=== PATIENT | female | born 1935 | race Caucasian/White ===

== ENCOUNTER 2020-08-29 10:05 | Inpatient (IN) | payer MEDICARE, BC ==
[2020-08-29] MEDS ORDERED: Sodium Chloride 0.9% 10 ML Syringe FLUSH PRN (10:29)
--- NOTE | 2020-08-29 10:32 | EDM.PDOC ---
ED HPI GENERAL MEDICAL PROBLEM - General Chief Complaint: Respiratory Problem Stated Complaint: LOW O2 Time Seen by Provider: 08/29/20 10:16 Source of Information: Reports: Patient, Family (daughterr) History Limitations: Reports: No Limitations - History of Present Illness INITIAL COMMENTS - FREE TEXT/NARRATIVE: 84-year-old female presents to the ED in accompaniment of her daughter. History suggest gradually increasing shortness of breath over the last week. O2 sat testing at home was 88 to 89%. Of note O2 sats on presentation to the ED today after walking into the hospital were only 85%. She can improve it slightly while using a spirometer. She is not on home oxygen therapy. She quit smoking cigarettes 23 years ago. She denies any orthopnea. Dyspnea on minimal exertion. No associated cough or sputum production. No recent change in medication. Patient has a history of chronic atrial fibrillation . She denies any chest pains in the last week or so. She does have a history of congestive heart failure. Currently on Lasix 40 mg in the morning and 20 mg in the p.m. She has not had COVID-19 vaccination. She has no signs or symptoms of active COVID-19 illness at this time. Patient carries a history of peripheral vascular disease having had left carotid endarterectomy in the past. Poor circulation to lower extremities Onset: Gradual Onset Date: 08/22/20 (Symptoms started a week or so ago.) Duration: Day(s):, Constant, Getting Worse (Dyspnea on minimal exertion.) Location: Reports: Chest (Shortness of breath on minimal exertion. No associated cough.) Quality: Reports: Other Severity: Moderate (Dyspnea on minimal exertion.) Improves with: Reports: Rest Worsens with: Reports: Other Context: Reports: Other. Denies: Activity (Worse with exertion.), Exercise, Lifting, Sick Contact, Trauma Associated Symptoms: Reports: Shortness of Breath, Weakness. Denies: Confusion, Chest Pain (Gradually worsening dyspnea over the last week particularly noted on minimal exertion.), Cough, cough w sputum, Diaphoresis, Fever/Chills, Headaches, Loss of Appetite, Malaise, Nausea/Vomiting, Rash, Seizure, Syncope Treatments LIFE MANAGER: Reports: Other (see below) (Due to dyspnea.) - Related Data Allergies Allergy/AdvReac Type Severity Reaction Status Date / Time [id number] Reductase Allergy Rash Verified 08/29/20 10:14 Inhibitor Sulfa (Sulfonamide Allergy Itching Verified 08/29/20 10:14 Antibiotics) oxycodone AdvReac Shaking Verified 08/29/20 10:14 Home Meds: Home Meds Furosemide [Lasix] 40 mg PO QAM 02/02/14 [History] Omeprazole 20 mg PO ACBREAKFAST 02/02/14 [History] allopurinoL [Zyloprim] 150 mg PO DAILY 02/02/14 [History] glipiZIDE [Glucotrol] 20 mg PO BID 02/02/14 [History] Flaxseed 4 tbsp PO DAILY 11/02/14 [History] Furosemide 20 mg PO QPM 11/02/14 [History] Potassium Chloride [Klor-Con M20] 10 meq PO DAILY 11/02/14 [History] Carvedilol [Coreg] 25 mg PO BID #60 tablet 11/08/14 [Rx] traMADol [Ultram] 50 mg PO Q6H PRN #20 tab 11/30/14 [Rx] Losartan [Cozaar] 50 mg PO DAILY 08/29/20 [History] Warfarin Sodium [Jantoven] 2.5 mg PO ASDIRECTED 08/29/20 [History] dilTIAZem HCL [Diltiazem ER] 180 mg PO DAILY 08/29/20 [History] Past Medical History HEENT History: Reports: Cataract, Impaired Vision Cardiovascular History: Reports: Afib (Rate controlled with metoprolol and Cardizem. 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 She has had left carotid endarterectomy.) Psychiatric History: Reports: None Endocrine/Metabolic History: Reports: Diabetes, Type II, Hypothyroidism, Obesity/BMI 30+ - Past Surgical History HEENT Surgical History: Reports: Cataract Surgery (Bilateral cataract extraction and intraocular lens placements.) Cardiovascular Surgical History: Reports: Carotid Endarterectomy (Left side done in December 2018) Social & Family History - Tobacco Use Tobacco Use Status *Q: Former Tobacco User (Quit 23 years ago. Carries a 84-ilge-eybg history however.) Used Tobacco, but Quit: Yes Month/Year Tobacco Last Used: 03/1999 - Caffeine Use Caffeine Use: Reports: Coffee - Recreational Drug Use Recreational Drug Use: No - Living Situation & Occupation Living situation: Reports: , Alone Occupation: Retired ED ROS GENERAL - Review of Systems Review Of Systems: See Below Constitutional: Reports: Fatigue. Denies: Fever, Chills, Malaise, Weakness, Diaphoresis, Decreased Appetite, Weight Loss HEENT: Reports: Glasses Respiratory: Reports: Shortness of Breath, Wheezing. Denies: Pleuritic Chest Pain, Cough, Sputum, Hemoptysis Cardiovascular: Reports: Blood Pressure Problem (Chronic hypertension), Claudication (She is being followed by cardiovascular surgeon yearly due to per 6 relation to her lower extremities), Dyspnea on Exertion, Edema. Denies: Chest Pain, Lightheadedness (Base edema lower extremities she believes ankles.), Orthopnea, Palpitations Endocrine: Reports: Fatigue GI/Abdominal: Reports: Constipation, Other : Reports: Frequency (Occasional GERD.), Incontinence (Occasional urge and stress components.), Urgency Musculoskeletal: Reports: Neck Pain ( lower back neck), Back Pain, Joint Pain (Knees hips) Skin: Reports: Bruising (Bruises easily due to being on Coumadin.) Neurological: Reports: No Symptoms Psychiatric: Reports: Anxiety Hematologic/Lymphatic: Reports: No Symptoms Immunologic: Reports: No Symptoms ED EXAM, GENERAL - Physical Exam Exam: See Below Exam Limited By: No Limitations General Appearance: Alert, WD/WN, No Apparent Distress, Other (Temperature is 36.5 degrees. Heart rate was 101 and irregularly irregular compatible with atrial fibrillation) Eye Exam: Bilateral Eye: Normal Inspection (Previous cataract extraction and intraocular lens implants.), PERRL Throat/Mouth: Normal Inspection, Normal Lips, Other. No: Normal Teeth Head: Atraumatic, Normocephalic Neck: Normal Inspection, Supple, Tender Lateral, Other (Previous left carotid endarterectomy has been carried out. No bruits are noted on the right side.). No: Non-Tender, Full Range of Motion, Carotid Bruit, Lymphadenopathy (L), Lymphadenopathy (R) Respiratory/Chest: No Respiratory Distress, No Accessory Muscle Use, Rales. No: Lungs Clear (Few fine rales right lung base.), Normal Breath Sounds, Respiratory Distress, Rhonchi, Wheezing Cardiovascular: No Gallop, No JVD, No Murmur, Tachycardia (101 on the monitor.), Irregularly Irregular (Heart rate of 101 and compared with atrial fibrillation.). No: Normal Peripheral Pulses, Regular Rate, Rhythm, No Edema Peripheral Pulses: 1+: Posterior Tibial (L), Posterior Tibial (R), Dorsalis Pedis (L), Dorsalis Pedis (R), 2+: Carotid (L), Carotid (R) GI/Abdominal: Normal Bowel Sounds, Soft, Non-Tender, No Organomegaly, No Abnormal Bruit, No Mass, Pelvis Stable, Other (No surgical scars.) Back Exam: Normal Inspection. No: CVA Tenderness (L), CVA Tenderness (R) Extremities: Pedal Edema (Trace pedal edema at the ankles.), Other (Evidence of arthritic changes both hips with limited external/internal rotation and arthritic change in both knees. The knees are not warm to palpation.) Psychiatric: Normal Affect, Normal Mood Skin Exam: Warm, Dry, Intact, Normal Color, No Rash #1 Interpretation EKG Date: 08/29/20 Time: 10:38 Rhythm: A-Fib (With rate of 75 to 120/min) Rate (Beats/Min): 89 [place]: RAD-Right Amagon Deviation (Minimal right axis deviation) P-Wave: Absent QRS: Other (Initial poor R wave progression with delayed R wave transition. Decreased voltage limb and precordial leads) ST-T: Other (Nonspecific T wave flattening aVF V2, V3.) QT: Prolonged (Markedly prolonged) EKG Interpretation Comments: Abnormal ECG Course - Vital Signs Last Recorded V/S: Last Vital Signs Temp 36.5 C 08/29/20 10:10 Pulse 101 H 08/29/20 10:10 Resp 18 08/29/20 10:10 BP 135/85 08/29/20 10:10 Pulse Ox 95 08/29/20 10:28 - Orders/Labs/Meds Orders: Active Orders 24 hr Category Date Time Status EKG Documentation Completion [RC] STAT Care 08/29/20 10:28 Active Oxygen Therapy [RC] ASDIRECTED Care 08/29/20 10:28 Active Peripheral IV Care [RC] . DIRECTED Care 08/29/20 10:29 Active Chest 1V Frontal [CR] Stat Exams 08/29/20 10:28 Taken Sodium Chloride 0.9% [Saline Flush] Med 08/29/20 10:29 Active 10 ml FLUSH ASDIRECTED PRN Peripheral IV Insertion Adult [OM.PC] Stat Oth 08/29/20 10:29 Ordered Medication Orders Sodium Chloride (Sodium Chloride 0.9% 10 Ml Syringe) 10 ml FLUSH ASDIRECTED PRN PRN Reason: Keep Vein Open Last Admin: 08/29/20 10:32 Dose: 10 ml Documented by: ROSANNE Labs: Laboratory Tests 08/29/20 08/29/20 08/29/20 Range/Units 10:18 10:18 10:18 WBC 4.24 (3.98-10.04) K/mm3 RBC 4.99 (3.98-5.22) M/mm3 Hgb 12.0 (11.2-15.7) gm/dl Hct 40.2 (34.1-44.9) % MCV 80.6 D (79.4-94.8) fl MCH 24.0 L (25.6-32.2) pg MCHC 29.9 L (32.2-35.5) g/dl RDW Std Deviation 52.0 H (36.4-46.3) fL Plt Count 175 L (182-369) K/mm3 MPV 10.4 (9.4-12.3) fl Neut % (Auto) 64.8 (34.0-71.1) % Lymph % (Auto) 26.7 (19.3-51.7) % [place] % (Auto) 7.3 (4.7-12.5) % Eos % (Auto) 0.5 L (0.7-5.8) Baso % (Auto) 0.7 (0.1-1.2) % Neut # (Auto) 2.75 (1.56-6.13) K/mm3 Lymph # (Auto) 1.13 L (1.18-3.74) K/mm3 [place] # (Auto) 0.31 (0.24-0.36) K/mm3 Eos # (Auto) 0.02 L (0.04-0.36) K/mm3 Baso # (Auto) 0.03 (0.01-0.08) K/mm3 Manual Slide Review Abnormal smear PT 28.0 H (9.7-12.0) SECONDS INR 2.67 APTT 32.2 H (21.7-31.4) SECONDS D-Dimer, Quantitative 0.66 H (0.19-0.50) mg/L Puncture Site ABG pH (7.35-7.45) ABG pCO2 (35.0-45.0) mmHg ABG pO2 (80.0-100.0) mmHg ABG HCO3 (22.0-26.0) meq/L ABG O2 Saturation (96.0-97.0) % ABG Base Excess (-2-2.0) Armand Test O2 Delivery Device Oxygen Flow Rate Sodium 142 (136-145) mEq/L Potassium 3.4 L (3.5-5.1) mEq/L Chloride 103 (98-107) mEq/L Carbon Dioxide 27 (21-32) mEq/L Anion Gap 15.4 H (5-15) BUN 13 (7-18) mg/dL Creatinine 1.1 H (0.55-1.02) mg/dL Est Cr Clr Drug Dosing 32.62 mL/min Estimated GFR (MDRD) 48 (>60) mL/min BUN/Creatinine Ratio 11.8 L (14-18) Glucose 208 H (70-99) mg/dL Calcium 9.0 (8.5-10.1) mg/dL Magnesium 1.9 (1.8-2.4) mg/dL Total Bilirubin 1.0 (0.2-1.0) mg/dL AST 13 L (15-37) U/L ALT 14 (14-59) U/L Alkaline Phosphatase 111 (46-116) U/L Troponin I < 0.017 (0.00-0.056) ng/mL C-Reactive Protein <0.2 (<1.0) mg/dL NT-Pro-B Natriuret Pep (0-450) pg/mL Total Protein 7.3 (6.4-8.2) g/dl Albumin 3.6 (3.4-5.0) g/dl Globulin 3.7 gm/dL Albumin/Globulin Ratio 1.0 (1-2) Urine Color (Yellow) Urine Appearance (Clear) Urine pH (5.0-8.0) Ur Specific [place] (1.005-1.030) Urine Protein (Negative) Urine Glucose (UA) (Negative) Urine Ketones (Negative) Urine Occult Blood (Negative) Urine Nitrite (Negative) Urine Bilirubin (Negative) Urine Urobilinogen (0.2-1.0) Ur Leukocyte Esterase (Negative) Urine RBC (0-5) /hpf Urine WBC (0-5) /hpf Ur Epithelial Cells (0-5) /hpf Urine Bacteria (FEW) /hpf Urine Mucus (FEW) /hpf SARS-CoV-2 RNA (LIZETH) (NEGATIVE) 08/29/20 08/29/20 08/29/20 Range/Units 10:18 10:25 10:27 WBC (3.98-10.04) K/mm3 RBC (3.98-5.22) M/mm3 Hgb (11.2-15.7) gm/dl Hct (34.1-44.9) % MCV (79.4-94.8) fl MCH (25.6-32.2) pg MCHC (32.2-35.5) g/dl RDW Std Deviation (36.4-46.3) fL Plt Count (182-369) K/mm3 MPV (9.4-12.3) fl Neut % (Auto) (34.0-71.1) % Lymph % (Auto) (19.3-51.7) % [place] % (Auto) (4.7-12.5) % Eos % (Auto) (0.7-5.8) Baso % (Auto) (0.1-1.2) % Neut # (Auto) (1.56-6.13) K/mm3 Lymph # (Auto) (1.18-3.74) K/mm3 [place] # (Auto) (0.24-0.36) K/mm3 Eos # (Auto) (0.04-0.36) K/mm3 Baso # (Auto) (0.01-0.08) K/mm3 Manual Slide Review PT (9.7-12.0) SECONDS INR APTT (21.7-31.4) SECONDS D-Dimer, Quantitative (0.19-0.50) mg/L Puncture Site Rt radial ABG pH 7.44 (7.35-7.45) ABG pCO2 38.0 (35.0-45.0) mmHg ABG pO2 44.0 L (80.0-100.0) mmHg ABG HCO3 25.3 (22.0-26.0) meq/L ABG O2 Saturation 77.9 L (96.0-97.0) % ABG Base Excess 1.7 (-2-2.0) Armand Test Positive O2 Delivery Device Nasal cannula Oxygen Flow Rate 1.5 Sodium (136-145) mEq/L Potassium (3.5-5.1) mEq/L Chloride (98-107) mEq/L Carbon Dioxide (21-32) mEq/L Anion Gap (5-15) BUN (7-18) mg/dL Creatinine (0.55-1.02) mg/dL Est Cr Clr Drug Dosing mL/min Estimated GFR (MDRD) (>60) mL/min BUN/Creatinine Ratio (14-18) Glucose (70-99) mg/dL Calcium (8.5-10.1) mg/dL Magnesium (1.8-2.4) mg/dL Total Bilirubin (0.2-1.0) mg/dL AST (15-37) U/L ALT (14-59) U/L Alkaline Phosphatase (46-116) U/L Troponin I (0.00-0.056) ng/mL C-Reactive Protein (<1.0) mg/dL NT-Pro-B Natriuret Pep 2548 H (0-450) pg/mL Total Protein (6.4-8.2) g/dl Albumin (3.4-5.0) g/dl Globulin gm/dL Albumin/Globulin Ratio (1-2) Urine Color (Yellow) Urine Appearance (Clear) Urine pH (5.0-8.0) Ur Specific [place] (1.005-1.030) Urine Protein (Negative) Urine Glucose (UA) (Negative) Urine Ketones (Negative) Urine Occult Blood (Negative) Urine Nitrite (Negative) Urine Bilirubin (Negative) Urine Urobilinogen (0.2-1.0) Ur Leukocyte Esterase (Negative) Urine RBC (0-5) /hpf Urine WBC (0-5) /hpf Ur Epithelial Cells (0-5) /hpf Urine Bacteria (FEW) /hpf Urine Mucus (FEW) /hpf SARS-CoV-2 RNA (LIZETH) Negative (NEGATIVE) 08/29/20 Range/Units 11:00 WBC (3.98-10.04) K/mm3 RBC (3.98-5.22) M/mm3 Hgb (11.2-15.7) gm/dl Hct (34.1-44.9) % MCV (79.4-94.8) fl MCH (25.6-32.2) pg MCHC (32.2-35.5) g/dl RDW Std Deviation (36.4-46.3) fL Plt Count (182-369) K/mm3 MPV (9.4-12.3) fl Neut % (Auto) (34.0-71.1) % Lymph % (Auto) (19.3-51.7) % [place] % (Auto) (4.7-12.5) % Eos % (Auto) (0.7-5.8) Baso % (Auto) (0.1-1.2) % Neut # (Auto) (1.56-6.13) K/mm3 Lymph # (Auto) (1.18-3.74) K/mm3 [place] # (Auto) (0.24-0.36) K/mm3 Eos # (Auto) (0.04-0.36) K/mm3 Baso # (Auto) (0.01-0.08) K/mm3 Manual Slide Review PT (9.7-12.0) SECONDS INR APTT (21.7-31.4) SECONDS D-Dimer, Quantitative (0.19-0.50) mg/L Puncture Site ABG pH (7.35-7.45) ABG pCO2 (35.0-45.0) mmHg ABG pO2 (80.0-100.0) mmHg ABG HCO3 (22.0-26.0) meq/L ABG O2 Saturation (96.0-97.0) % ABG Base Excess (-2-2.0) Armand Test O2 Delivery Device Oxygen Flow Rate Sodium (136-145) mEq/L Potassium (3.5-5.1) mEq/L Chloride (98-107) mEq/L Carbon Dioxide (21-32) mEq/L Anion Gap (5-15) BUN (7-18) mg/dL Creatinine (0.55-1.02) mg/dL Est Cr Clr Drug Dosing mL/min Estimated GFR (MDRD) (>60) mL/min BUN/Creatinine Ratio (14-18) Glucose (70-99) mg/dL Calcium (8.5-10.1) mg/dL Magnesium (1.8-2.4) mg/dL Total Bilirubin (0.2-1.0) mg/dL AST (15-37) U/L ALT (14-59) U/L Alkaline Phosphatase (46-116) U/L Troponin I (0.00-0.056) ng/mL C-Reactive Protein (<1.0) mg/dL NT-Pro-B Natriuret Pep (0-450) pg/mL Total Protein (6.4-8.2) g/dl Albumin (3.4-5.0) g/dl Globulin gm/dL Albumin/Globulin Ratio (1-2) Urine Color Yellow (Yellow) Urine Appearance Clear (Clear) Urine pH 7.0 (5.0-8.0) Ur Specific [place] 1.020 (1.005-1.030) Urine Protein 1+ H (Negative) Urine Glucose (UA) Negative (Negative) Urine Ketones Negative (Negative) Urine Occult Blood Negative (Negative) Urine Nitrite Negative (Negative) Urine Bilirubin Negative (Negative) Urine Urobilinogen 0.2 (0.2-1.0) Ur Leukocyte Esterase Negative (Negative) Urine RBC 0-5 (0-5) /hpf Urine WBC 0-5 (0-5) /hpf Ur Epithelial Cells 0-5 (0-5) /hpf Urine Bacteria Not seen (FEW) /hpf Urine Mucus Not seen (FEW) /hpf SARS-CoV-2 RNA (LIZETH) (NEGATIVE) Meds: Medications Generic Name Dose Route Start Last Admin Trade Name Freq PRN Reason Stop Dose Admin Sodium Chloride 10 ml 08/29/20 10:29 08/29/20 10:32 Sodium Chloride 0.9% 10 Ml Syringe FLUSH 10 ml ASDIRECTED PRN Administration Keep Vein Open Discontinued Medications Generic Name Dose Route Start Last Admin Trade Name Freq PRN Reason Stop Dose Admin Furosemide 40 mg 08/29/20 10:33 08/29/20 10:47 Furosemide 40 Mg/4 Ml Vial IVPUSH 08/29/20 10:34 40 mg NOW ONE Administration - Radiology Interpretation Free Text/Narrative:: 84-year-old female presents to the ED for evaluation of gradually worsening dyspnea on minimal exertion over the last week. No associated orthopnea, cough or sputum production. O2 sats were 88 to 89% upon arrival in the ED and she states that is what they have been at home. Improved minimally with spirometer use. She denies any recent chest pain. She carries a history of chronic atrial fibrillation and is on Coumadin. She is also on cardia zyme and metoprolol for rate control and hypertension. She is not on home oxygen. Placed on 2 L/min by nasal cannula to achieve O2 sats of 95% in the ED. Exam reveals only a few crackles right lung base. No JVD. Patient is on Lasix 40 mg in the morning and 20 mg p.m. Suspect exacerbation of heart failure. Plan chest x-ray. COVID-19 screen. Although she is asymptomatic. She has not received COVID-19 vacci nation. Chest x-ray to be done as well as ECG and routine labs including a BNP and D-dimer and magnesium level. ABGs will be done as well. - Re-Assessments/Exams Free Text/Narrative Re-Assessment/Exam: 08/29/20 10:47 ABGs reveal a pH of 7.44. PCO2 is 38.0 with a PO2 of only 44. O2 sats are 78% on room air. 08/29/20 11:29 chest x-ray done portably reveals mild cardiomegaly. Diffuse vascular congestion pattern with small right-sided pleural effusion evident. No signs of pneumonia. No pneumothorax. 08/29/20 11:38 White cell count is normal at 4.24. The differential shows 65% neutrophils on the auto differential. Hemoglobin is 12.0 with hematocrit of 40.2. Platelet count is 175. No MCV V is 80.6. The smear reveals 1+ anisocytosis and 1+ hypo and 1+ polychromasia. PT is 28.0 with an INR of 2.67. PTT is 32.2 with a D-dimer slightly elevated at 0.66. This is likely elevated due to congestive failure. Sodium is 142 with potassium slightly low at 3.4. Chloride 103 with a bicarb of 27. Anion gap is 15.4. BUN is 13 with a creatinine of 1.1 and a GFR 48. Glucose elevated at 208. Calcium is 9.0. Magnesium 1.9. Liver function is in normal. Troponin I is less than 0.017 C- reactive protein less than 0.2. BNP is 2548. Total protein is 7.3 with an albumin fraction of 3.6. Urinalysis shows 1+ proteinuria but no signs of infect ion COVID-19 screen is negative. Due to the patient's hypoxia it appears she needs to stay in the hospital until we improve her cardiac function and congestive heart failure symptoms. I would discuss case with Dr. Jason on-call hospitalist 08/29/20 11:44 I have spoken with Dr. Jason. Plan will be to admit the patient to the [facility] surgery floor on telemetry. Departure - Departure Time of Disposition: 12:20 Disposition: Admitted As Inpatient 68 Condition: Fair Clinical Impression: Chronic atrial fibrillation, Hypokalemia, Hypoxia Acute exacerbation of congestive heart failure Qualifiers: Heart failure type: unspecified Qualified Code(s): I50.9 - Heart failure, unspecified - Discharge Information *PRESCRIPTION DRUG MONITORING PROGRAM REVIEWED*: Not Applicable Referrals: Joe Conway MD [Primary Care Provider] - Forms: ED Department Discharge Sepsis Event Note (ED) - Evaluation Sepsis Screening Result: No Definite Risk - Focused Exam Vital Signs: Vital Signs Temp Pulse Resp BP Pulse Ox Pulse Ox 08/29/20 10:28 95 08/29/20 10:10 36.5 C 101 H 18 135/85 85 L - My Orders Last 24 Hours: My Active Orders 08/29/20 10:28 EKG Documentation Completion [RC] STAT Oxygen Therapy [RC] ASDIRECTED Chest 1V Frontal [CR] Stat 08/29/20 10:29 Peripheral IV Care [RC] . DIRECTED Sodium Chloride 0.9% [Saline Flush] 10 ml FLUSH ASDIRECTED PRN Peripheral IV Insertion Adult [OM.PC] Stat - Assessment/Plan Last 24 Hours: My Active Orders 08/29/20 10:28 EKG Documentation Completion [RC] STAT Oxygen Therapy [RC] ASDIRECTED Chest 1V Frontal [CR] Stat 08/29/20 10:29 Peripheral IV Care [RC] . DIRECTED Sodium Chloride 0.9% [Saline Flush] 10 ml FLUSH ASDIRECTED PRN Peripheral IV Insertion Adult [OM.PC] Stat
[2020-08-29] MEDS ORDERED: Furosemide 40 MG/4 ML VIAL IVPUSH ONE (10:33)
--- NOTE | 2020-08-29 11:56 | CR ---
Chest: Portable view of the chest was obtained. Comparison: Prior chest x-ray of 11/04/14. Increased density is seen within the lateral right costophrenic angle presumably due to atelectasis. Heart is felt to be slightly enlarged. Upper mediastinum is normal. Lungs otherwise are clear. Bony structures show nothing acute. Impression: 1. Increased density within the lateral right costophrenic angle most likely representing atelectasis. 2. Slightly enlarged heart. 3. Nothing acute is otherwise seen. Diagnostic code #2
[2020-08-29] MEDS ORDERED: Acetaminophen 325 MG Tab PO PRN (12:31)
[2020-08-29] MEDS ORDERED: Acetaminophen/HYDROcodone 325-5 MG Tab PO PRN (12:31)
[2020-08-29] MEDS ORDERED: Albuterol/Ipratropium 3.0-0.5 MG/3 ML Neb Soln NEB PRN (12:31)
[2020-08-29] MEDS ORDERED: Promethazine 12.5 MG in Sodium Chloride 0.9% 50 ML IV PRN (12:31)
[2020-08-29] MEDS ORDERED: hydrALAZINE 20 MG/ML SDV IVPUSH PRN (12:39)
[2020-08-29] MEDS ORDERED: traMADol 50 MG Tab PO PRN (12:49)
--- NOTE | 2020-08-29 13:10 | PCM.HP.2 ---
H&P History of Present Illness - General Date of Service: 08/29/20 Admit Problem/Dx: Admission Diagnosis/Problem Admission Diagnosis/Problem Congestive heart failure Source of Information: Patient - History of Present Illness Initial Comments - Free Text/Narative: Patient is an 84-year-old female with a history of CHF, atrial fibrillation on Coumadin, hypertension and diabetes who presented to the ER due to worsening shortness of breath for 1 week. Patient denies coughing, fever or chills. She is not on home oxygen. Denies headache, dizziness, chest pain, abdominal pain, or dysuria. She has atrial fibrillation and has been taking warfarin. In the ER, she was found to have low oxygen desaturation. Chest x-ray no evidence of pneumonia. BNP 2548. Home medication include Lasix to 40 mg in the morning 20 mg in the afternoon. He is a medically compliant. - Related Data Allergies/Adverse Reactions: Allergies Allergy/AdvReac Type Severity Reaction Status Date / Time Oyrlmef-Rvb-Zkh Reductase Allergy Rash Verified 08/29/20 10:14 Inhibitor Sulfa (Sulfonamide Allergy Itching Verified 08/29/20 10:14 Antibiotics) oxycodone AdvReac Shaking Verified 08/29/20 10:14 Home Medications: Home Meds Furosemide [Lasix] 40 mg PO QAM 02/02/14 [History] Omeprazole 20 mg PO ACBREAKFAST 02/02/14 [History] allopurinoL [Zyloprim] 150 mg PO DAILY 02/02/14 [History] glipiZIDE [Glucotrol] 20 mg PO BID 02/02/14 [History] Flaxseed 4 tbsp PO DAILY 11/02/14 [History] Furosemide 20 mg PO QPM 11/02/14 [History] Potassium Chloride [Klor-Con M20] 10 meq PO DAILY 11/02/14 [History] Carvedilol [Coreg] 25 mg PO BID #60 tablet 11/08/14 [Rx] traMADol [Ultram] 50 mg PO Q6H PRN #20 tab 11/30/14 [Rx] Losartan [Cozaar] 50 mg PO DAILY 08/29/20 [History] Warfarin Sodium [Jantoven] 2.5 mg PO ASDIRECTED 08/29/20 [History] dilTIAZem HCL [Diltiazem ER] 180 mg PO DAILY 08/29/20 [History] Past Medical History HEENT History: Reports: Cataract, Impaired Vision Cardiovascular History: Reports: Afib (Rate controlled with metoprolol and Cardizem. 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 She has had left carotid endarterectomy.) Psychiatric History: Reports: None Endocrine/Metabolic History: Reports: Diabetes, Type II, Hypothyroidism, Obesity/BMI 30+ - Past Surgical History HEENT Surgical History: Reports: Cataract Surgery (Bilateral cataract extraction and intraocular lens placements.) Cardiovascular Surgical History: Reports: Carotid Endarterectomy (Left side done in December 2018) Social & Family History - Family History Family Medical History: No Pertinent Family History (Denies genetic diseases in family) - Tobacco Use Tobacco Use Status *Q: Former Tobacco User (Quit 23 years ago. Carries a [id number] history however.) Used Tobacco, but Quit: Yes Month/Year Tobacco Last Used: 03/1999 - Caffeine Use Caffeine Use: Reports: Coffee - Recreational Drug Use Recreational Drug Use: No - Living Situation & Occupation Living situation: Reports: , Alone Occupation: Retired H&P Review of Systems - Review of Systems: Review Of Systems: See Below General: Reports: No Symptoms HEENT: Reports: No Symptoms Pulmonary: Reports: Shortness of Breath Cardiovascular: Reports: No Symptoms Gastrointestinal: Reports: No Symptoms Genitourinary: Reports: No Symptoms Musculoskeletal: Reports: No Symptoms Skin: Reports: No Symptoms Psychiatric: Reports: No Symptoms Neurological: Reports: No Symptoms Hematologic/Lymphatic: Reports: No Symptoms Immunologic: Reports: No Symptoms Exam - Exam Exam: See Below - Vital Signs Vital Signs: Last Vital Signs Temp 36.5 C 08/29/20 10:10 Pulse 95 08/29/20 12:40 Resp 16 08/29/20 12:40 BP 135/85 08/29/20 10:10 Pulse Ox 95 08/29/20 12:40 Weight: 78.471 kg - Exam General: Alert, Oriented, Cooperative HEENT: Conjunctiva Clear, EOMI, Pupils Equal, Pupils Reactive Neck: Supple, Trachea Midline, Full Range of Motion Lungs: Decreased Breath Sounds, Rhonchi Cardiovascular: Irregular Rhythm GI/Abdominal Exam: Normal Bowel Sounds, Soft, Non-Tender, No Distention, No Mass Extremities: Normal Inspection, Normal Range of Motion, Non-Tender, Pedal Edema (1-2+) Skin: Warm, Dry, Intact Neurological: Strength Equal Bilateral, Normal Speech, Normal Tone, Sensation Intact Neuro Extensive - Mental Status: Alert, Oriented x3, Normal Mood/Affect Psychiatric: Normal Mood - Patient Data Lab Results Last 24 hrs: Laboratory Results - last 24 hr 08/29/20 08/29/20 08/29/20 Range/Units 10:18 10:18 10:18 WBC 4.24 (3.98-10.04) K/mm3 RBC 4.99 (3.98-5.22) M/mm3 Hgb 12.0 (11.2-15.7) gm/dl Hct 40.2 (34.1-44.9) % MCV 80.6 D (79.4-94.8) fl MCH 24.0 L (25.6-32.2) pg MCHC 29.9 L (32.2-35.5) g/dl RDW Std Deviation 52.0 H (36.4-46.3) fL Plt Count 175 L (182-369) K/mm3 MPV 10.4 (9.4-12.3) fl Neut % (Auto) 64.8 (34.0-71.1) % Lymph % (Auto) 26.7 (19.3-51.7) % Elbert % (Auto) 7.3 (4.7-12.5) % Eos % (Auto) 0.5 L (0.7-5.8) Baso % (Auto) 0.7 (0.1-1.2) % Neut # (Auto) 2.75 (1.56-6.13) K/mm3 Lymph # (Auto) 1.13 L (1.18-3.74) K/mm3 Elbert # (Auto) 0.31 (0.24-0.36) K/mm3 Eos # (Auto) 0.02 L (0.04-0.36) K/mm3 Baso # (Auto) 0.03 (0.01-0.08) K/mm3 Manual Slide Review Abnormal smear PT 28.0 H (9.7-12.0) SECONDS INR 2.67 APTT 32.2 H (21.7-31.4) SECONDS D-Dimer, Quantitative 0.66 H (0.19-0.50) mg/L Puncture Site ABG pH (7.35-7.45) ABG pCO2 (35.0-45.0) mmHg ABG pO2 (80.0-100.0) mmHg ABG HCO3 (22.0-26.0) meq/L ABG O2 Saturation (96.0-97.0) % ABG Base Excess (-2-2.0) Armand Test O2 Delivery Device Oxygen Flow Rate Sodium 142 (136-145) mEq/L Potassium 3.4 L (3.5-5.1) mEq/L Chloride 103 (98-107) mEq/L Carbon Dioxide 27 (21-32) mEq/L Anion Gap 15.4 H (5-15) BUN 13 (7-18) mg/dL Creatinine 1.1 H (0.55-1.02) mg/dL Est Cr Clr Drug Dosing 32.62 mL/min Estimated GFR (MDRD) 48 (>60) mL/min BUN/Creatinine Ratio 11.8 L (14-18) Glucose 208 H (70-99) mg/dL Calcium 9.0 (8.5-10.1) mg/dL Magnesium 1.9 (1.8-2.4) mg/dL Total Bilirubin 1.0 (0.2-1.0) mg/dL AST 13 L (15-37) U/L ALT 14 (14-59) U/L Alkaline Phosphatase 111 (46-116) U/L Troponin I < 0.017 (0.00-0.056) ng/mL C-Reactive Protein <0.2 (<1.0) mg/dL NT-Pro-B Natriuret Pep (0-450) pg/mL Total Protein 7.3 (6.4-8.2) g/dl Albumin 3.6 (3.4-5.0) g/dl Globulin 3.7 gm/dL Albumin/Globulin Ratio 1.0 (1-2) Urine Color (Yellow) Urine Appearance (Clear) Urine pH (5.0-8.0) Ur Specific [place] (1.005-1.030) Urine Protein (Negative) Urine Glucose (UA) (Negative) Urine Ketones (Negative) Urine Occult Blood (Negative) Urine Nitrite (Negative) Urine Bilirubin (Negative) Urine Urobilinogen (0.2-1.0) Ur Leukocyte Esterase (Negative) Urine RBC (0-5) /hpf Urine WBC (0-5) /hpf Ur Epithelial Cells (0-5) /hpf Urine Bacteria (FEW) /hpf Urine Mucus (FEW) /hpf SARS-CoV-2 RNA (LIZETH) (NEGATIVE) 08/29/20 08/29/20 08/29/20 Range/Units 10:18 10:25 10:27 WBC (3.98-10.04) K/mm3 RBC (3.98-5.22) M/mm3 Hgb (11.2-15.7) gm/dl Hct (34.1-44.9) % MCV (79.4-94.8) fl MCH (25.6-32.2) pg MCHC (32.2-35.5) g/dl RDW Std Deviation (36.4-46.3) fL Plt Count (182-369) K/mm3 MPV (9.4-12.3) fl Neut % (Auto) (34.0-71.1) % Lymph % (Auto) (19.3-51.7) % Elbert % (Auto) (4.7-12.5) % Eos % (Auto) (0.7-5.8) Baso % (Auto) (0.1-1.2) % Neut # (Auto) (1.56-6.13) K/mm3 Lymph # (Auto) (1.18-3.74) K/mm3 [place]bert # (Auto) (0.24-0.36) K/mm3 Eos # (Auto) (0.04-0.36) K/mm3 Baso # (Auto) (0.01-0.08) K/mm3 Manual Slide Review PT (9.7-12.0) SECONDS INR APTT (21.7-31.4) SECONDS D-Dimer, Quantitative (0.19-0.50) mg/L Puncture Site Rt radial ABG pH 7.44 (7.35-7.45) ABG pCO2 38.0 (35.0-45.0) mmHg ABG pO2 44.0 L (80.0-100.0) mmHg ABG HCO3 25.3 (22.0-26.0) meq/L ABG O2 Saturation 77.9 L (96.0-97.0) % ABG Base Excess 1.7 (-2-2.0) Armand Test Positive O2 Delivery Device Nasal cannula Oxygen Flow Rate 1.5 Sodium (136-145) mEq/L Potassium (3.5-5.1) mEq/L Chloride (98-107) mEq/L Carbon Dioxide (21-32) mEq/L Anion Gap (5-15) BUN (7-18) mg/dL Creatinine (0.55-1.02) mg/dL Est Cr Clr Drug Dosing mL/min Estimated GFR (MDRD) (>60) mL/min BUN/Creatinine Ratio (14-18) Glucose (70-99) mg/dL Calcium (8.5-10.1) mg/dL Magnesium (1.8-2.4) mg/dL Total Bilirubin (0.2-1.0) mg/dL AST (15-37) U/L ALT (14-59) U/L Alkaline Phosphatase (46-116) U/L Troponin I (0.00-0.056) ng/mL C-Reactive Protein (<1.0) mg/dL NT-Pro-B Natriuret Pep 2548 H (0-450) pg/mL Total Protein (6.4-8.2) g/dl Albumin (3.4-5.0) g/dl Globulin gm/dL Albumin/Globulin Ratio (1-2) Urine Color (Yellow) Urine Appearance (Clear) Urine pH (5.0-8.0) Ur Specific [place] (1.005-1.030) Urine Protein (Negative) Urine Glucose (UA) (Negative) Urine Ketones (Negative) Urine Occult Blood (Negative) Urine Nitrite (Negative) Urine Bilirubin (Negative) Urine Urobilinogen (0.2-1.0) Ur Leukocyte Esterase (Negative) Urine RBC (0-5) /hpf Urine WBC (0-5) /hpf Ur Epithelial Cells (0-5) /hpf Urine Bacteria (FEW) /hpf Urine Mucus (FEW) /hpf SARS-CoV-2 RNA (LIZETH) Negative (NEGATIVE) 08/29/20 Range/Units 11:00 WBC (3.98-10.04) K/mm3 RBC (3.98-5.22) M/mm3 Hgb (11.2-15.7) gm/dl Hct (34.1-44.9) % MCV (79.4-94.8) fl MCH (25.6-32.2) pg MCHC (32.2-35.5) g/dl RDW Std Deviation (36.4-46.3) fL Plt Count (182-369) K/mm3 MPV (9.4-12.3) fl Neut % (Auto) (34.0-71.1) % Lymph % (Auto) (19.3-51.7) % Elbert % (Auto) (4.7-12.5) % Eos % (Auto) (0.7-5.8) Baso % (Auto) (0.1-1.2) % Neut # (Auto) (1.56-6.13) K/mm3 Lymph # (Auto) (1.18-3.74) K/mm3 [place]bert # (Auto) (0.24-0.36) K/mm3 Eos # (Auto) (0.04-0.36) K/mm3 Baso # (Auto) (0.01-0.08) K/mm3 Manual Slide Review PT (9.7-12.0) SECONDS INR APTT (21.7-31.4) SECONDS D-Dimer, Quantitative (0.19-0.50) mg/L Puncture Site ABG pH (7.35-7.45) ABG pCO2 (35.0-45.0) mmHg ABG pO2 (80.0-100.0) mmHg ABG HCO3 (22.0-26.0) meq/L ABG O2 Saturation (96.0-97.0) % ABG Base Excess (-2-2.0) Armand Test O2 Delivery Device Oxygen Flow Rate Sodium (136-145) mEq/L Potassium (3.5-5.1) mEq/L Chloride (98-107) mEq/L Carbon Dioxide (21-32) mEq/L Anion Gap (5-15) BUN (7-18) mg/dL Creatinine (0.55-1.02) mg/dL Est Cr Clr Drug Dosing mL/min Estimated GFR (MDRD) (>60) mL/min BUN/Creatinine Ratio (14-18) Glucose (70-99) mg/dL Calcium (8.5-10.1) mg/dL Magnesium (1.8-2.4) mg/dL Total Bilirubin (0.2-1.0) mg/dL AST (15-37) U/L ALT (14-59) U/L Alkaline Phosphatase (46-116) U/L Troponin I (0.00-0.056) ng/mL C-Reactive Protein (<1.0) mg/dL NT-Pro-B Natriuret Pep (0-450) pg/mL Total Protein (6.4-8.2) g/dl Albumin (3.4-5.0) g/dl Globulin gm/dL Albumin/Globulin Ratio (1-2) Urine Color Yellow (Yellow) Urine Appearance Clear (Clear) Urine pH 7.0 (5.0-8.0) Ur Specific [place] 1.020 (1.005-1.030) Urine Protein 1+ H (Negative) Urine Glucose (UA) Negative (Negative) Urine Ketones Negative (Negative) Urine Occult Blood Negative (Negative) Urine Nitrite Negative (Negative) Urine Bilirubin Negative (Negative) Urine Urobilinogen 0.2 (0.2-1.0) Ur Leukocyte Esterase Negative (Negative) Urine RBC 0-5 (0-5) /hpf Urine WBC 0-5 (0-5) /hpf Ur Epithelial Cells 0-5 (0-5) /hpf Urine Bacteria Not seen (FEW) /hpf Urine Mucus Not seen (FEW) /hpf SARS-CoV-2 RNA (LIZETH) (NEGATIVE) Result Diagrams: 08/29/20 10:18 08/29/20 10:18 Sepsis Event Note - Evaluation Sepsis Screening Result: No Definite Risk - Focused Exam Vital Signs: Vital Signs Temp Pulse Resp BP Pulse Ox Pulse Ox 08/29/20 12:40 95 16 95 08/29/20 10:28 95 08/29/20 10:10 36.5 C 101 H 18 135/85 85 L Problem List Initiated/Reviewed/Updated: Yes Orders Last 24hrs: Active Orders 24 hr Category Date Time Status Admission Status [Patient Status] [ADT] Routine ADT 08/29/20 11:45 Active Blood Glucose Check, Bedside [RC] QIDACANDBED Care 08/29/20 12:42 Active Cardiac Monitoring [RC] CONTINUOUS Care 08/29/20 12:32 Active EKG Documentation Completion [RC] STAT Care 08/29/20 10:28 Active Height and Weight [RC] DAILY Care 08/29/20 12:31 Active Intake and Output [RC] QSHIFT Care 08/29/20 12:31 Active Oxygen Therapy [RC] PRN Care 08/29/20 12:31 Active Peripheral IV Care [RC] . DIRECTED Care 08/29/20 10:29 Active Pulse Oximetry [RC] CONTINUOUS Care 08/29/20 12:32 Active RT Aerosol Therapy [RC] ASDIRECTED Care 08/29/20 12:34 Active Up to Chair [RC] ASDIRECTED Care 08/29/20 12:31 Active VTE/DVT Education [RC] PER UNIT ROUTINE Care 08/29/20 12:31 Active Vital Signs [RC] Q4H Care 08/29/20 12:31 Active OT Evaluation and Treatment [CONS] Routine Cons 08/29/20 12:31 Active PT Evaluation and Treatment [CONS] Routine Cons 08/29/20 12:31 Active 2 Gram Sodium Diet [DIET] Diet 08/29/20 Lunch Active Consistent Carbohydrate Diet [DIET] Diet 08/29/20 Lunch Active CBC WITH AUTO DIFF [HEME] DAILY Lab 08/30/20 05:00 Ordered CBC WITH AUTO DIFF [HEME] DAILY Lab 08/31/20 05:00 Ordered CBC WITH AUTO DIFF [HEME] DAILY Lab 09/01/20 05:00 Ordered CBC WITH AUTO DIFF [HEME] DAILY Lab 09/02/20 05:00 Ordered CBC WITH AUTO DIFF [HEME] DAILY Lab 09/03/20 05:00 Ordered COMPREHENSIVE METABOLIC PN,CMP [CHEM] DAILY Lab 08/30/20 05:00 Ordered COMPREHENSIVE METABOLIC PN,CMP [CHEM] DAILY Lab 08/31/20 05:00 Ordered COMPREHENSIVE METABOLIC PN,CMP [CHEM] DAILY Lab 09/01/20 05:00 Ordered COMPREHENSIVE METABOLIC PN,CMP [CHEM] DAILY Lab 09/02/20 05:00 Ordered COMPREHENSIVE METABOLIC PN,CMP [CHEM] DAILY Lab 09/03/20 05:00 Ordered INR,PT,PROTHROMBIN TIME [COAG] DAILY Lab 08/30/20 05:00 Ordered INR,PT,PROTHROMBIN TIME [COAG] DAILY Lab 08/31/20 05:00 Ordered INR,PT,PROTHROMBIN TIME [COAG] DAILY Lab 09/01/20 05:00 Ordered INR,PT,PROTHROMBIN TIME [COAG] DAILY Lab 09/02/20 05:00 Ordered INR,PT,PROTHROMBIN TIME [COAG] DAILY Lab 09/03/20 05:00 Ordered INR,PT,PROTHROMBIN TIME [COAG] Routine Lab 08/29/20 12:55 Ordered MAGNESIUM [CHEM] Routine Lab 08/29/20 12:31 Ordered TROPONIN I [CHEM] Routine Lab 08/29/20 12:31 Ordered Acetaminophen [TylenoL] Med 08/29/20 12:31 Active 650 mg PO Q6H PRN Acetaminophen/HYDROcodone [[place] 325-5 MG] Med 08/29/20 12:31 Active 1 tab PO Q6H PRN Albuterol/Ipratropium [DuoNeb 3.0-0.5 MG/3 ML] Med 08/29/20 12:31 Active 3 ml NEB Q4H PRN Enoxaparin [Lovenox] Med 08/29/20 21:00 Pending 40 mg SUBCUT BEDTIME Furosemide [Lasix] Med 08/29/20 21:00 Ordered 40 mg IVPUSH BID Insulin Lispro [HumaLOG] Med 08/29/20 17:00 Active See Protocol SUBCUT QIDACANDBED Losartan [Cozaar] Med 08/29/20 13:00 Ordered 50 mg PO DAILY Pharmacy Consult [Consult to Pharmacy] Med 08/29/20 13:00 Ordered 1 each .XX ASDIRECTED Promethazine [Phenergan] 12.5 mg Med 08/29/20 12:31 Active Sodium Chloride 0.9% [Normal Saline] 50 ml IV Q6H Sodium Chloride 0.9% [Saline Flush] Med 08/29/20 10:29 Active 10 ml FLUSH ASDIRECTED PRN Warfarin [Coumadin] Med 08/29/20 13:00 Ordered 2.5 mg PO ASDIRECTED allopurinoL [Zyloprim] Med 08/30/20 09:00 Ordered 150 mg PO DAILY carvediloL [Coreg] Med 08/29/20 13:00 Ordered 25 mg PO BID dilTIAZem HCL [Diltiazem 24Hr ER] Med 08/29/20 13:00 Ordered 180 mg PO DAILY glipiZIDE [Glucotrol] Med 08/29/20 13:00 Ordered 20 mg PO BID hydrALAZINE [Apresoline] Med 08/29/20 12:39 Active 10 mg IVPUSH Q4H PRN traMADol [Ultram] Med 08/29/20 12:49 Ordered 50 mg PO Q6H PRN Peripheral IV Insertion Adult [OM.PC] Stat Oth 08/29/20 10:29 Ordered Resuscitation Status Routine Resus Stat 08/29/20 12:31 Ordered Medication Orders Acetaminophen (Acetaminophen 325 Mg Tab) 650 mg PO Q6H PRN PRN Reason: Pain (Mild 1-3)/fever Hydrocodone Bitart/Acetaminophen (Acetaminophen/Hydrocodone 325-5 Mg Tab) 1 tab PO Q6H PRN PRN Reason: Pain (moderate 4-6) Albuterol/Ipratropium (Albuterol/Ipratropium 3.0-0.5 Mg/3 Ml Neb Soln) 3 ml NEB Q4H PRN PRN Reason: Shortness Of Breath/wheezing Allopurinol (Allopurinol 300 Mg Tab) 150 mg PO DAILY [facility] Carvedilol (Carvedilol 12.5 Mg Tab) 25 mg PO BID [facility] Enoxaparin Sodium (Enoxaparin 40 Mg/0.4 Ml Syringe) 40 mg SUBCUT BEDTIME [facility] Furosemide (Furosemide 40 Mg/4 Ml Vial) 40 mg IVPUSH BID [facility] Glipizide (Glipizide 10 Mg Tab) 20 mg PO BID [facility] Hydralazine HCl (Hydralazine 20 Mg/Ml Sdv) 10 mg IVPUSH Q4H PRN PRN Reason: Hypertension Promethazine HCl 12.5 mg/ (Sodium Chloride) 50.5 mls @ 100 mls/hr IV Q6H PRN PRN Reason: Nausea/Vomiting Insulin Human Lispro (Insulin Lispro 100 Unit/Ml 10 Ml Vial) 0 unit SUBCUT QIDACANDBED [facility]; Protocol Losartan Potassium (Losartan 50 Mg Tab) 50 mg PO DAILY [facility] Non-Formulary Medication (Diltiazem Hcl [Diltiazem 24hr Er]) 180 mg PO DAILY [facility] Pharmacy Consult (Pharmacy Consult Order) 1 each .XX ASDIRECTED ANJELICA Sodium Chloride (Sodium Chloride 0.9% 10 Ml Syringe) 10 ml FLUSH ASDIRECTED PRN PRN Reason: Keep Vein Open Last Admin: 08/29/20 10:32 Dose: 10 ml Documented by: ROSANNE Tramadol HCl (Tramadol 50 Mg Tab) 50 mg PO Q6H PRN PRN Reason: back pain Warfarin Sodium (Warfarin 2.5 Mg Tab) 2.5 mg PO ASDIRECTED [facility] Assessment/Plan Comment:: Patient is an 84-year-old female with a history of CHF, atrial fibrillation on Coumadin, hypertension and diabetes who presented to the ER due to worsening shortness of breath for 1 week. Assessment and plan: Acute hypoxic respiratory failure -most likely due to CHF exacerbation -Not on home oxygen -She is now on 2L -Pulse ox. Oxygen therapy to keep oxygen saturation greater than 92% CHF exacerbation -Most likely due to diastolic CHF -BNP 2548 -mild cardiomegaly -Chronic hypotension -troponin negative. repeat it -Diffuse vascular congestion pattern -small right-sided pleural effusion -Stress test was performed on 08/28/2017 - negative for ischmea -echo on 09/26/2014 - 65%; Grade 2 pattern of LV diastolic filling -home meds include lasix 40mg Qam and 20mg Qpm which are on hld -lasix 40mg iv BID -repeat electrolytes and renal function in am -intake and output -daily weight -Repeat echocardiogram chronic atrial fibrillation on Coumadin -continue home diltiazem 180mg daily, carvedilol 25mg bid -continue warfarin 2.5mg (pharmacy to dose) PAD -left carotid endarterectomy -Added Lipitor -Did not order aspirin due to concerning bleeding since that she is on warfarin DM type 2 -continue home glipizide 10mg bid -Diabetic diet -Insulin sliding scale -Adjust insulin based on sugar levels HTN -continue home losartan 50mg daily, carvedilol 25mg bid -Hydralazine as needed Prolonged QT interval on EKG -519 -Avoid medications which can prolong QT -Monitoring telemetry DVT prophylaxis: Warfarin CODE STATUS: Full - Mortality Measure Prognosis:: Good
[2020-08-29] MEDS: Furosemide 40 MG/4 ML VIAL IVPUSH SCH (14:28)
[2020-08-29] MEDS: Insulin Lispro 100 UNIT/ML 10 ML Vial SUBCUT SCH ×2 (17:15→22:01)
[2020-08-29] MEDS ORDERED: Warfarin 2.5 MG Tab PO SCH (18:00)
[2020-08-29] MEDS: Diltiazem 180 MG Cap.CD PO SCH (20:35)
[2020-08-29] MEDS: Carvedilol 12.5 MG Tab PO SCH (20:35)
[2020-08-29] MEDS: atorvaSTATin 40 MG Tab PO SCH (20:42)
[2020-08-29] MEDS ORDERED: Enoxaparin 40 MG/0.4 ML Syringe SUBCUT SCH (21:00)
[2020-08-30] MEDS: Furosemide 40 MG/4 ML VIAL IVPUSH SCH ×2 (06:09→13:02)
[2020-08-30] MEDS: Insulin Lispro 100 UNIT/ML 10 ML Vial SUBCUT SCH ×4 (06:53→21:08)
[2020-08-30] MEDS ORDERED: Magnesium Sulfate/Water 4 GM in Premix Bag 1 BAG IV ONE (09:30)
[2020-08-30] MEDS: Carvedilol 12.5 MG Tab PO SCH ×2 (09:31→20:51)
[2020-08-30] MEDS: Losartan 50 MG Tab PO SCH (09:31)
[2020-08-30] MEDS: Allopurinol 300 MG Tab PO SCH (09:31)
[2020-08-30] MEDS: Potassium Chloride 20 MEQ Tab.ER PO SCH ×2 (11:01→17:28)
--- NOTE | 2020-08-30 13:51 | PCM.PN ---
- General Info Date of Service: 08/30/20 Admission Dx/Problem (Free Text): Admission Diagnosis/Problem Admission Diagnosis/Problem Congestive heart failure Subjective Update: Patient is an 84-year-old female with a history of CHF, atrial fibrillation on Coumadin, hypertension and diabetes who presented to the ER due to worsening shortness of breath for 1 week. Patient is a feeling much better today, less shortness of breath. Denies headache, dizziness, nausea, vomiting, fever, or chills. Vital signs are acceptable She is on 1 L now. She is not on oxygen at home Platelets 176 INR 2.84 Potassium 2.9, magnesium 1.8 Total bilirubin 1.3 D-dimer 0.66 - Review of Systems Systems Review Comment:: General: Reports: No Symptoms HEENT: Reports: No Symptoms Pulmonary: Reports: Shortness of Breath Cardiovascular: Reports: No Symptoms Gastrointestinal: Reports: No Symptoms Genitourinary: Reports: No Symptoms Musculoskeletal: Reports: No Symptoms Skin: Reports: No Symptoms Psychiatric: Reports: No Symptoms Neurological: Reports: No Symptoms Hematologic/Lymphatic: Reports: No Symptoms Immunologic: Reports: No Symptoms - Patient Data Vitals - Most Recent: Last Vital Signs Temp 36.8 C 08/30/20 11:15 Pulse 85 08/30/20 11:15 Resp 14 08/30/20 11:15 BP 129/63 08/30/20 11:15 Pulse Ox 93 L 08/30/20 11:15 Weight - Most Recent: 72.802 kg I&O - Last 24 Hours: Intake & Output 08/29/20 08/30/20 08/30/20 22:59 06:59 14:59 Intake Total 440 400 0 Output Total 900 2575 Balance -460 -2175 0 Lab Results Last 24 Hours: Laboratory Results - last 24 hr 08/29/20 08/29/20 08/29/20 Range/Units 12:58 16:48 21:19 WBC (3.98-10.04) K/mm3 RBC (3.98-5.22) M/mm3 Hgb (11.2-15.7) gm/dl Hct (34.1-44.9) % MCV (79.4-94.8) fl MCH (25.6-32.2) pg MCHC (32.2-35.5) g/dl RDW Std Deviation (36.4-46.3) fL Plt Count (182-369) K/mm3 MPV (9.4-12.3) fl Neut % (Auto) (34.0-71.1) % Lymph % (Auto) (19.3-51.7) % Carver % (Auto) (4.7-12.5) % Eos % (Auto) (0.7-5.8) Baso % (Auto) (0.1-1.2) % Neut # (Auto) (1.56-6.13) K/mm3 Lymph # (Auto) (1.18-3.74) K/mm3 Carver # (Auto) (0.24-0.36) K/mm3 Eos # (Auto) (0.04-0.36) K/mm3 Baso # (Auto) (0.01-0.08) K/mm3 Manual Slide Review PT 27.9 H (9.7-12.0) SECONDS INR 2.66 Sodium (136-145) mEq/L Potassium (3.5-5.1) mEq/L Chloride (98-107) mEq/L Carbon Dioxide (21-32) mEq/L Anion Gap (5-15) BUN (7-18) mg/dL Creatinine (0.55-1.02) mg/dL Est Cr Clr Drug Dosing mL/min Estimated GFR (MDRD) (>60) mL/min BUN/Creatinine Ratio (14-18) Glucose (70-99) mg/dL POC Glucose 164 H 119 H (70-99) mg/dL Calcium (8.5-10.1) mg/dL Total Bilirubin (0.2-1.0) mg/dL AST (15-37) U/L ALT (14-59) U/L Alkaline Phosphatase (46-116) U/L Total Protein (6.4-8.2) g/dl Albumin (3.4-5.0) g/dl Globulin gm/dL Albumin/Globulin Ratio (1-2) 08/30/20 08/30/20 08/30/20 Range/Units 06:10 06:10 06:10 WBC 4.62 (3.98-10.04) K/mm3 RBC 5.01 (3.98-5.22) M/mm3 Hgb 12.0 (11.2-15.7) gm/dl Hct 40.6 (34.1-44.9) % MCV 81.0 (79.4-94.8) fl MCH 24.0 L (25.6-32.2) pg MCHC 29.6 L (32.2-35.5) g/dl RDW Std Deviation 52.1 H (36.4-46.3) fL Plt Count 176 L (182-369) K/mm3 MPV 10.3 (9.4-12.3) fl Neut % (Auto) 60.0 (34.0-71.1) % Lymph % (Auto) 29.0 (19.3-51.7) % Carver % (Auto) 8.9 (4.7-12.5) % Eos % (Auto) 1.5 (0.7-5.8) Baso % (Auto) 0.6 (0.1-1.2) % Neut # (Auto) 2.77 (1.56-6.13) K/mm3 Lymph # (Auto) 1.34 (1.18-3.74) K/mm3 Carver # (Auto) 0.41 H (0.24-0.36) K/mm3 Eos # (Auto) 0.07 (0.04-0.36) K/mm3 Baso # (Auto) 0.03 (0.01-0.08) K/mm3 Manual Slide Review Abnormal smear PT 29.8 H (9.7-12.0) SECONDS INR 2.84 Sodium 142 (136-145) mEq/L Potassium 2.9 L (3.5-5.1) mEq/L Chloride 103 (98-107) mEq/L Carbon Dioxide 30 (21-32) mEq/L Anion Gap 11.9 (5-15) BUN 15 (7-18) mg/dL Creatinine 0.9 (0.55-1.02) mg/dL Est Cr Clr Drug Dosing 39.87 mL/min Estimated GFR (MDRD) 60 (>60) mL/min BUN/Creatinine Ratio 16.7 (14-18) Glucose 140 H (70-99) mg/dL POC Glucose (70-99) mg/dL Calcium 9.0 (8.5-10.1) mg/dL Total Bilirubin 1.3 H (0.2-1.0) mg/dL AST 15 (15-37) U/L ALT 14 (14-59) U/L Alkaline Phosphatase 106 (46-116) U/L Total Protein 7.1 (6.4-8.2) g/dl Albumin 3.5 (3.4-5.0) g/dl Globulin 3.6 gm/dL Albumin/Globulin Ratio 1.0 (1-2) 08/30/20 08/30/20 Range/Units 06: 11:13 WBC (3.98-10.04) K/mm3 RBC (3.98-5.22) M/mm3 Hgb (11.2-15.7) gm/dl Hct (34.1-44.9) % MCV (79.4-94.8) fl MCH (25.6-32.2) pg MCHC (32.2-35.5) g/dl RDW Std Deviation (36.4-46.3) fL Plt Count (182-369) K/mm3 MPV (9.4-12.3) fl Neut % (Auto) (34.0-71.1) % Lymph % (Auto) (19.3-51.7) % Carver % (Auto) (4.7-12.5) % Eos % (Auto) (0.7-5.8) Baso % (Auto) (0.1-1.2) % Neut # (Auto) (1.56-6.13) K/mm3 Lymph # (Auto) (1.18-3.74) K/mm3 Carver # (Auto) (0.24-0.36) K/mm3 Eos # (Auto) (0.04-0.36) K/mm3 Baso # (Auto) (0.01-0.08) K/mm3 Manual Slide Review PT (9.7-12.0) SECONDS INR Sodium (136-145) mEq/L Potassium (3.5-5.1) mEq/L Chloride (98-107) mEq/L Carbon Dioxide (21-32) mEq/L Anion Gap (5-15) BUN (7-18) mg/dL Creatinine (0.55-1.02) mg/dL Est Cr Clr Drug Dosing mL/min Estimated GFR (MDRD) (>60) mL/min BUN/Creatinine Ratio (14-18) Glucose (70-99) mg/dL POC Glucose 133 H 191 H (70-99) mg/dL Calcium (8.5-10.1) mg/dL Total Bilirubin (0.2-1.0) mg/dL AST (15-37) U/L ALT (14-59) U/L Alkaline Phosphatase (46-116) U/L Total Protein (6.4-8.2) g/dl Albumin (3.4-5.0) g/dl Globulin gm/dL Albumin/Globulin Ratio (1-2) Med Orders - Current: Current Medications Acetaminophen (Acetaminophen 325 Mg Tab) 650 mg PO Q6H PRN PRN Reason: Pain (Mild 1-3)/fever Hydrocodone Bitart/Acetaminophen (Acetaminophen/Hydrocodone 325-5 Mg Tab) 1 tab PO Q6H PRN PRN Reason: Pain (moderate 4-6) Albuterol/Ipratropium (Albuterol/Ipratropium 3.0-0.5 Mg/3 Ml Neb Soln) 3 ml NEB Q4H PRN PRN Reason: Shortness Of Breath/wheezing Allopurinol (Allopurinol 300 Mg Tab) 150 mg PO DAILY [facility] Last Admin: 08/30/20 09:31 Dose: 150 mg Documented by: Atorvastatin Calcium (Atorvastatin 40 Mg Tab) 40 mg PO BEDTIME [facility] Last Admin: 08/29/20 20:42 Dose: 40 mg Documented by: Carvedilol (Carvedilol 12.5 Mg Tab) 25 mg PO BID [facility] Last Admin: 08/30/20 09:31 Dose: 25 mg Documented by: Diltiazem HCl (Diltiazem 180 Mg Cap.Cd) 180 mg PO BEDTIME [facility] Last Admin: 08/29/20 20:35 Dose: 180 mg Documented by: Furosemide (Furosemide 40 Mg/4 Ml Vial) 40 mg IVPUSH BIDDIURETIC [facility] Last Admin: 08/30/20 13:02 Dose: 40 mg Documented by: Glipizide (Glipizide 10 Mg Tab) 20 mg PO BIDAC [facility] Last Admin: 08/30/20 06:09 Dose: 20 mg Documented by: Hydralazine HCl (Hydralazine 20 Mg/Ml Sdv) 10 mg IVPUSH Q4H PRN PRN Reason: Hypertension Promethazine HCl 12.5 mg/ (Sodium Chloride) 50.5 mls @ 100 mls/hr IV Q6H PRN PRN Reason: Nausea/Vomiting Magnesium Sulfate/Dextrose 1 (gm/ Premix) 100 mls @ 25 mls/hr IV ONETIME ONE Stop: 08/30/20 14:14 Last Admin: 08/30/20 11:01 Dose: 25 mls/hr Documented by: Insulin Human Lispro (Insulin Lispro 100 Unit/Ml 10 Ml Vial) 0 unit SUBCUT QIDACANDBED [facility]; Protocol Last Admin: 08/30/20 11:31 Dose: 2 units Documented by: Losartan Potassium (Losartan 50 Mg Tab) 50 mg PO DAILY [facility] Last Admin: 08/30/20 09:31 Dose: 50 mg Documented by: Potassium Chloride (Potassium Chloride 20 Meq Tab.Er) 20 meq PO TIDMEALS [facility] Stop: 08/31/20 07:01 Last Admin: 08/30/20 11:01 Dose: 20 meq Documented by: Sodium Chloride (Sodium Chloride 0.9% 10 Ml Syringe) 10 ml FLUSH ASDIRECTED PRN PRN Reason: Keep Vein Open Last Admin: 08/29/20 10:32 Dose: 10 ml Documented by: Tramadol HCl (Tramadol 50 Mg Tab) 50 mg PO Q6H PRN PRN Reason: back pain Warfarin Sodium (Pharmacy To Dose - Warfarin) 1 dose .XX ASDIRECTED PRN PRN Reason: RX TO DOSE WARFARIN Discontinued Medications Enoxaparin Sodium (Enoxaparin 40 Mg/0.4 Ml Syringe) 40 mg SUBCUT BEDTIME [facility] Furosemide (Furosemide 40 Mg/4 Ml Vial) 40 mg IVPUSH NOW ONE Stop: 08/29/20 10:34 Last Admin: 08/29/20 10:47 Dose: 40 mg Documented by: Glipizide (Glipizide 10 Mg Tab) 20 mg PO BID [facility] Magnesium Sulfate 4 gm/ Premix 50 mls @ 12.5 mls/hr IV ONETIME ONE Stop: 08/30/20 13:29 Last Admin: 08/30/20 09:30 Dose: 12.5 mls/hr Documented by: Warfarin Sodium (Warfarin 2.5 Mg Tab) 2.5 mg PO QPM [facility] Stop: 08/29/20 18:01 Last Admin: 08/29/20 17:15 Dose: 2.5 mg Documented by: - Exam Physical Findings Comments:: General: Alert, Oriented, Cooperative HEENT: Conjunctiva Clear, EOMI, Pupils Equal, Pupils Reactive Neck: Supple, Trachea Midline, Full Range of Motion Lungs: Decreased Breath Sounds, Rhonchi Cardiovascular: Irregular Rhythm GI/Abdominal Exam: Normal Bowel Sounds, Soft, Non-Tender, No Distention, No Mass Extremities: Normal Inspection, Normal Range of Motion, Non-Tender, Pedal Edema (1-2+) (improving) Skin: Warm, Dry, Intact Neurological: Strength Equal Bilateral, Normal Speech, Normal Tone, Sensation Intact Neuro Extensive - Mental Status: Alert, Oriented x3, Normal Mood/Affect Psychiatric: Normal Mood - Patient Data Lab Results Last 24 hrs: Laboratory Results - last 24 hr 08/29/20 08/29/20 08/29/20 Range/Units 12:58 16:48 21:19 WBC (3.98-10.04) K/mm3 RBC (3.98-5.22) M/mm3 Hgb (11.2-15.7) gm/dl Hct (34.1-44.9) % MCV (79.4-94.8) fl MCH (25.6-32.2) pg MCHC (32.2-35.5) g/dl RDW Std Deviation (36.4-46.3) fL Plt Count (182-369) K/mm3 MPV (9.4-12.3) fl Neut % (Auto) (34.0-71.1) % Lymph % (Auto) (19.3-51.7) % Carver % (Auto) (4.7-12.5) % Eos % (Auto) (0.7-5.8) Baso % (Auto) (0.1-1.2) % Neut # (Auto) (1.56-6.13) K/mm3 Lymph # (Auto) (1.18-3.74) K/mm3 Carver # (Auto) (0.24-0.36) K/mm3 Eos # (Auto) (0.04-0.36) K/mm3 Baso # (Auto) (0.01-0.08) K/mm3 Manual Slide Review PT 27.9 H (9.7-12.0) SECONDS INR 2.66 Sodium (136-145) mEq/L Potassium (3.5-5.1) mEq/L Chloride (98-107) mEq/L Carbon Dioxide (21-32) mEq/L Anion Gap (5-15) BUN (7-18) mg/dL Creatinine (0.55-1.02) mg/dL Est Cr Clr Drug Dosing mL/min Estimated GFR (MDRD) (>60) mL/min BUN/Creatinine Ratio (14-18) Glucose (70-99) mg/dL POC Glucose 164 H 119 H (70-99) mg/dL Calcium (8.5-10.1) mg/dL Total Bilirubin (0.2-1.0) mg/dL AST (15-37) U/L ALT (14-59) U/L Alkaline Phosphatase (46-116) U/L Total Protein (6.4-8.2) g/dl Albumin (3.4-5.0) g/dl Globulin gm/dL Albumin/Globulin Ratio (1-2) 08/30/20 08/30/20 08/30/20 Range/Units 06:10 06:10 06:10 WBC 4.62 (3.98-10.04) K/mm3 RBC 5.01 (3.98-5.22) M/mm3 Hgb 12.0 (11.2-15.7) gm/dl Hct 40.6 (34.1-44.9) % MCV 81.0 (79.4-94.8) fl MCH 24.0 L (25.6-32.2) pg MCHC 29.6 L (32.2-35.5) g/dl RDW Std Deviation 52.1 H (36.4-46.3) fL Plt Count 176 L (182-369) K/mm3 MPV 10.3 (9.4-12.3) fl Neut % (Auto) 60.0 (34.0-71.1) % Lymph % (Auto) 29.0 (19.3-51.7) % Carver % (Auto) 8.9 (4.7-12.5) % Eos % (Auto) 1.5 (0.7-5.8) Baso % (Auto) 0.6 (0.1-1.2) % Neut # (Auto) 2.77 (1.56-6.13) K/mm3 Lymph # (Auto) 1.34 (1.18-3.74) K/mm3 Carver # (Auto) 0.41 H (0.24-0.36) K/mm3 Eos # (Auto) 0.07 (0.04-0.36) K/mm3 Baso # (Auto) 0.03 (0.01-0.08) K/mm3 Manual Slide Review Abnormal smear PT 29.8 H (9.7-12.0) SECONDS INR 2.84 Sodium 142 (136-145) mEq/L Potassium 2.9 L (3.5-5.1) mEq/L Chloride 103 (98-107) mEq/L Carbon Dioxide 30 (21-32) mEq/L Anion Gap 11.9 (5-15) BUN 15 (7-18) mg/dL Creatinine 0.9 (0.55-1.02) mg/dL Est Cr Clr Drug Dosing 39.87 mL/min Estimated GFR (MDRD) 60 (>60) mL/min BUN/Creatinine Ratio 16.7 (14-18) Glucose 140 H (70-99) mg/dL POC Glucose (70-99) mg/dL Calcium 9.0 (8.5-10.1) mg/dL Total Bilirubin 1.3 H (0.2-1.0) mg/dL AST 15 (15-37) U/L ALT 14 (14-59) U/L Alkaline Phosphatase 106 (46-116) U/L Total Protein 7.1 (6.4-8.2) g/dl Albumin 3.5 (3.4-5.0) g/dl Globulin 3.6 gm/dL Albumin/Globulin Ratio 1.0 (1-2) 08/30/20 08/30/20 Range/Units 06:21 11:13 WBC (3.98-10.04) K/mm3 RBC (3.98-5.22) M/mm3 Hgb (11.2-15.7) gm/dl Hct (34.1-44.9) % MCV (79.4-94.8) fl MCH (25.6-32.2) pg MCHC (32.2-35.5) g/dl RDW Std Deviation (36.4-46.3) fL Plt Count (182-369) K/mm3 MPV (9.4-12.3) fl Neut % (Auto) (34.0-71.1) % Lymph % (Auto) (19.3-51.7) % Carver % (Auto) (4.7-12.5) % Eos % (Auto) (0.7-5.8) Baso % (Auto) (0.1-1.2) % Neut # (Auto) (1.56-6.13) K/mm3 Lymph # (Auto) (1.18-3.74) K/mm3 Carver # (Auto) (0.24-0.36) K/mm3 Eos # (Auto) (0.04-0.36) K/mm3 Baso # (Auto) (0.01-0.08) K/mm3 Manual Slide Review PT (9.7-12.0) SECONDS INR Sodium (136-145) mEq/L Potassium (3.5-5.1) mEq/L Chloride (98-107) mEq/L Carbon Dioxide (21-32) mEq/L Anion Gap (5-15) BUN (7-18) mg/dL Creatinine (0.55-1.02) mg/dL Est Cr Clr Drug Dosing mL/min Estimated GFR (MDRD) (>60) mL/min BUN/Creatinine Ratio (14-18) Glucose (70-99) mg/dL POC Glucose 133 H 191 H (70-99) mg/dL Calcium (8.5-10.1) mg/dL Total Bilirubin (0.2-1.0) mg/dL AST (15-37) U/L ALT (14-59) U/L Alkaline Phosphatase (46-116) U/L Total Protein (6.4-8.2) g/dl Albumin (3.4-5.0) g/dl Globulin gm/dL Albumin/Globulin Ratio (1-2) Result Diagrams: 08/30/20 06:10 08/30/20 06:10 Sepsis Event Note - Evaluation Sepsis Screening Result: No Definite Risk - Focused Exam Vital Signs: Vital Signs Temp Pulse Resp BP Pulse Ox Pulse Ox 08/30/20 11:15 36.8 C 85 14 129/63 93 L 08/30/20 09:31 85 134/63 08/30/20 07:47 92 L 08/30/20 07:26 36.5 C 85 16 134/63 92 L 08/30/20 06:14 96 08/30/20 04:41 36.7 C 82 16 128/59 L 92 L - Problem List Review Problem List Initiated/Reviewed/Updated: Yes - My Orders Last 24 Hours: My Active Orders 08/29/20 12:49 traMADol [Ultram] 50 mg PO Q6H PRN 08/29/20 13:00 Pharmacy to Dose - Warfarin 1 dose .XX ASDIRECTED PRN 08/29/20 14:00 Furosemide [Lasix] 40 mg IVPUSH BIDDIURETIC 08/29/20 17:00 Insulin Lispro [HumaLOG] See Protocol SUBCUT QIDACANDBED glipiZIDE [Glucotrol] 20 mg PO BIDAC 08/29/20 21:00 Diltiazem [Cardizem CD] 180 mg PO BEDTIME atorvaSTATin [Lipitor] 40 mg PO BEDTIME carvediloL [Coreg] 25 mg PO BID 08/30/20 09:00 Losartan [Cozaar] 50 mg PO DAILY allopurinoL [Zyloprim] 150 mg PO DAILY 08/30/20 10:15 Magnesium Sulfate/D5W [Magnesium Sulfate in D5W 1 GM/100 ML] 1 gm Premix Bag 1 bag IV ONETIME 08/30/20 11:00 Potassium Chloride [Klor-Con M20] 20 meq PO TIDMEALS 08/31/20 05:00 CBC WITH AUTO DIFF [HEME] DAILY COMPREHENSIVE METABOLIC PN,CMP [CHEM] DAILY INR,PT,PROTHROMBIN TIME [COAG] DAILY MAGNESIUM [CHEM] Routine 09/01/20 05:00 CBC WITH AUTO DIFF [HEME] DAILY COMPREHENSIVE METABOLIC PN,CMP [CHEM] DAILY INR,PT,PROTHROMBIN TIME [COAG] DAILY 09/02/20 05:00 CBC WITH AUTO DIFF [HEME] DAILY COMPREHENSIVE METABOLIC PN,CMP [CHEM] DAILY INR,PT,PROTHROMBIN TIME [COAG] DAILY 09/03/20 05:00 CBC WITH AUTO DIFF [HEME] DAILY COMPREHENSIVE METABOLIC PN,CMP [CHEM] DAILY INR,PT,PROTHROMBIN TIME [COAG] DAILY - Plan Plan:: Patient is an 84-year-old female with a history of CHF, atrial fibrillation on Coumadin, hypertension and diabetes who presented to the ER due to worsening shortness of breath for 1 week. Assessment and plan: Acute hypoxic respiratory failure -most likely due to CHF exacerbation -Not on home oxygen -She is now on 2L -Pulse ox. Oxygen therapy to keep oxygen saturation greater than 92% CHF exacerbation -Most likely due to diastolic CHF -BNP 2548 -mild cardiomegaly -Chronic hypotension -troponin <0.017 x 2 -Diffuse vascular congestion pattern -small right-sided pleural effusion -Stress test was performed on 08/28/2017 - negative for ischmea -echo on 09/26/2014 - 65%; Grade 2 pattern of LV diastolic filling -home meds include lasix 40mg Qam and 20mg Qpm which are on hld -lasix 40mg iv BID -repeat electrolytes and renal function in am -intake and output -daily weight -Repeat echocardiogram chronic atrial fibrillation on Coumadin -continue home diltiazem 180mg daily, carvedilol 25mg bid -continue warfarin 2.5mg (pharmacy to dose) PAD -left carotid endarterectomy -Added Lipitor -Did not order aspirin due to concerning bleeding since that she is on warfarin DM type 2 -continue home glipizide 10mg bid -Diabetic diet -Insulin sliding scale -Adjust insulin based on sugar levels HTN -continue home losartan 50mg daily, carvedilol 25mg bid -Hydralazine as needed Prolonged QT interval on EKG -519 -Avoid medications which can prolong QT -Monitoring telemetry Elevation of D-dimer -0.66 -She has been on warfarin with a therapeutic INR -considering her ago, the elevation is not significant -Wells' critieria for PE - Low risk group: 1.3% chance of PE in an ED population -I would not like to do CT angio chest for her -But I will do ultrasound Doppler to rule out a DVT of legs DVT prophylaxis: Warfarin CODE STATUS: Full
--- NOTE | 2020-08-30 15:21 | US ---
Bilateral lower extremity deep venous ultrasound: Duplex and color Doppler evaluation was obtained of the right and left common femoral, proximal greater saphenous, superficial femoral, popliteal, posterior tibial and peroneal veins. Comparison: No prior venous imaging is available. Findings: Normal phasic flow, augmentation and compression is seen. Impression: 1. No evidence of deep venous thrombosis within the right or left lower extremity. Diagnostic code #1
[2020-08-30] MEDS ORDERED: Warfarin 2.5 MG Tab PO SCH (18:00)
[2020-08-30] MEDS: atorvaSTATin 40 MG Tab PO SCH (20:52)
[2020-08-30] MEDS: Diltiazem 180 MG Cap.CD PO SCH (20:52)
[2020-08-31] MEDS: Potassium Chloride 20 MEQ Tab.ER PO SCH (06:27)
[2020-08-31] MEDS: Furosemide 40 MG/4 ML VIAL IVPUSH SCH (06:27)
[2020-08-31] MEDS: Carvedilol 12.5 MG Tab PO SCH (08:22)
[2020-08-31] MEDS: Allopurinol 300 MG Tab PO SCH (08:22)
[2020-08-31] MEDS: Losartan 50 MG Tab PO SCH (08:22)
[2020-08-31] MEDS: Insulin Lispro 100 UNIT/ML 10 ML Vial SUBCUT SCH ×2 (08:23→11:13)
[2020-08-31 08:26] VITALS: PULSE 83
[2020-08-31 11:04] VITALS: BP 119/79
--- NOTE | 2020-08-31 11:30 | PCM.DCSUM1 ---
Discharge Summary - Hospital Course Free Text/Narrative:: Patient is an 84-year-old female with a history of CHF, atrial fibrillation on Coumadin, hypertension and diabetes who presented to the ER due to worsening shortness of breath for 1 week. Assessment and plan: Acute hypoxic respiratory failure -most likely due to CHF exacerbation -Not on home oxygen -She is now on RM. she is not on home oxygen. -Discussed with RT who felt pt does not need home oxygen. CHF exacerbation - improved -Most likely due to diastolic CHF -BNP 2548 -mild cardiomegaly -Chronic hypotension -troponin <0.017 x 2 -Diffuse vascular congestion pattern -small right-sided pleural effusion -Stress test was performed on 08/28/2017 - negative for ischmea -echo on 09/26/2014 - 65%; Grade 2 pattern of LV diastolic filling -home meds include lasix 40mg Qam and 20mg Qpm which are on hld -will discontinue lasix 40mg iv BID and discharge her back to her home lasix 20 mg in the morning and 40 mg in the afternoon -repeat electrolytes and renal function in 3 days and then weekly -intake and output -daily weight -Repeat echocardiogram pending chronic atrial fibrillation on Coumadin -continue home diltiazem 180mg daily, carvedilol 25mg bid -continue warfarin 2.5mg (pharmacy to dose) PAD -left carotid endarterectomy -Added Lipitor DM type 2 -continue home glipizide -Diabetic diet -Insulin sliding scale -Adjust insulin based on sugar levels HTN -continue home losartan 50mg daily, carvedilol 25mg bid -Hydralazine as needed Prolonged QT interval on EKG -519 -Avoid medications which can prolong QT -Monitoring telemetry Elevation of D-dimer -0.66 -She has been on warfarin with a therapeutic INR -considering her ago, the elevation is not significant -Wells' critieria for PE - Low risk group: 1.3% chance of PE in an ED population -I would not like to do CT angio chest for her -But I will do ultrasound Doppler to rule out a DVT of legs -Doppler showed no evidence of DVT Patient does not have any complaints. Denies headache, dizziness, chest pain, nausea, vomiting, abdominal pain, or dysuria. Vitals are stable and acceptable. Her shortness of breath significantly improved. PT OT recommended home independent. Vital signs are stable and acceptable. She is on room air with acceptable oxygen saturation. she will be discharged to home today to follow with the PCP in 3 days and cardiology within 1 week. Check blood sugar 4 times a day and adjust insulin/diabetic medication based on sugar levels. Repeat a CB C, CMP, and electrolytes in 3 days and then weekly. check warfarin level. Do not drive until approval from MD. Call PCP for medical issues. 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 Check warfarin levels. Check blood sugar 4 times a day and adjust insulin/diabetic medication based on sugar levels. Repeat a CBC, CMP, and electrolytes in 3 days and then weekly. - Patient Instructions Diet: Low Sodium, Diabetic Diet Activity: As Tolerated Driving: Do Not Drive - Discharge Plan *PRESCRIPTION DRUG MONITORING PROGRAM REVIEWED*: Not Applicable *COPY OF PRESCRIPTION DRUG MONITORING REPORT IN PATIENT ELKE: Not Applicable Prescriptions/Med Rec: Insulin Lispro [Humalog] See Protocol SUBCUT QIDACANDBED #10 ml atorvaSTATin [Lipitor] 40 mg PO BEDTIME #30 tablet Home Medications: Home Meds Furosemide [Lasix] 40 mg PO QPM 02/02/14 [History] Omeprazole 20 mg PO ACBREAKFAST 02/02/14 [History] allopurinoL [Zyloprim] 150 mg PO DAILY 02/02/14 [History] glipiZIDE [Glucotrol] 20 mg PO BID 02/02/14 [History] Flaxseed 4 tbsp PO DAILY 11/02/14 [History] Furosemide 20 mg PO QAM 11/02/14 [History] Potassium Chloride [Klor-Con M20] 10 meq PO DAILY 11/02/14 [History] Carvedilol [Coreg] 25 mg PO BID #60 tablet 11/08/14 [Rx] traMADol [Ultram] 50 mg PO Q6H PRN #20 tab 11/30/14 [Rx] Levothyroxine [Synthroid] 50 mcg PO ACBREAKFAST 08/29/20 [History] Losartan [Cozaar] 50 mg PO DAILY 08/29/20 [History] Warfarin Sodium [Jantoven] 2.5 mg PO SUMOWETHFRSA 08/29/20 [History] Warfarin [Coumadin] 3.75 mg PO TU 08/29/20 [History] dilTIAZem HCL [Diltiazem 24Hr ER] 180 mg PO DAILY 08/29/20 [History] Insulin Lispro [Humalog] See Protocol SUBCUT QIDACANDBED #10 ml 08/31/20 [Rx] atorvaSTATin [Lipitor] 40 mg PO BEDTIME #30 tablet 08/31/20 [Rx] Patient Handouts: Heart Failure Action Plan Forms: ED Department Discharge Referrals: Joe Conway MD [Primary Care Provider] - 09/05/20 1:00 pm (check in 12:45.) see, cardiology within one week. [Other] - Discharge Summary/Plan Comment DC Time >30 min.: Yes - General Info Date of Service: 08/31/20 Admission Dx/Problem (Free Text: Admission Diagnosis/Problem Admission Diagnosis/Problem Congestive heart failure Subjective Update: Patient is an 84-year-old female with a history of CHF, atrial fibrillation on Coumadin, hypertension and diabetes who presented to the ER due to worsening shortness of breath for 1 week. Patient is a feeling much better today, less shortness of breath. Denies headache, dizziness, nausea, vomiting, fever, or chills. Vital signs are acceptable INR 2.42 Potassium 3.4, creatinine 1.0 Magnesium 2.2 Total bilirubin 1.1 - Review of Systems Systems Review Comment: General: Reports: No Symptoms HEENT: Reports: No Symptoms Pulmonary: Reports: Shortness of Breath Cardiovascular: Reports: No Symptoms Gastrointestinal: Reports: No Symptoms Genitourinary: Reports: No Symptoms Musculoskeletal: Reports: No Symptoms Skin: Reports: No Symptoms Psychiatric: Reports: No Symptoms Neurological: Reports: No Symptoms Hematologic/Lymphatic: Reports: No Symptoms Immunologic: Reports: No Symptoms - Patient Data Vitals - Most Recent: Last Vital Signs Temp 36.3 C 08/31/20 07:50 Pulse 83 08/31/20 08:22 Resp 16 08/31/20 07:50 BP 119/79 06/18/21 10:59 Pulse Ox 91 L 08/31/20 09:36 Weight - Most Recent: 73.255 kg I&O - Last 24 hours: Intake & Output 08/30/20 08/31/20 08/31/20 22:59 06:59 14:59 Intake Total 925 500 Output Total 900 950 Balance 25 -450 Lab Results - Last 24 hrs: Laboratory Results - last 24 hr 08/30/20 08/30/20 08/30/20 Range/Units 11:13 16:41 20:56 WBC (3.98-10.04) K/mm3 RBC (3.98-5.22) M/mm3 Hgb (11.2-15.7) gm/dl Hct (34.1-44.9) % MCV (79.4-94.8) fl MCH (25.6-32.2) pg MCHC (32.2-35.5) g/dl RDW Std Deviation (36.4-46.3) fL Plt Count (182-369) K/mm3 MPV (9.4-12.3) fl Neut % (Auto) (34.0-71.1) % Lymph % (Auto) (19.3-51.7) % [place] % (Auto) (4.7-12.5) % Eos % (Auto) (0.7-5.8) Baso % (Auto) (0.1-1.2) % Neut # (Auto) (1.56-6.13) K/mm3 Lymph # (Auto) (1.18-3.74) K/mm3 [place] # (Auto) (0.24-0.36) K/mm3 Eos # (Auto) (0.04-0.36) K/mm3 Baso # (Auto) (0.01-0.08) K/mm3 Manual Slide Review PT (9.7-12.0) SECONDS INR Sodium (136-145) mEq/L Potassium (3.5-5.1) mEq/L Chloride (98-107) mEq/L Carbon Dioxide (21-32) mEq/L Anion Gap (5-15) BUN (7-18) mg/dL Creatinine (0.55-1.02) mg/dL Est Cr Clr Drug Dosing mL/min Estimated GFR (MDRD) (>60) mL/min BUN/Creatinine Ratio (14-18) Glucose (70-99) mg/dL POC Glucose 191 H 146 H 176 H (70-99) mg/dL Calcium (8.5-10.1) mg/dL Magnesium (1.8-2.4) mg/dL Total Bilirubin (0.2-1.0) mg/dL AST (15-37) U/L ALT (14-59) U/L Alkaline Phosphatase (46-116) U/L Total Protein (6.4-8.2) g/dl Albumin (3.4-5.0) g/dl Globulin gm/dL Albumin/Globulin Ratio (1-2) 08/31/20 08/31/20 08/31/20 Range/Units 05:40 05:40 05:40 WBC 5.15 (3.98-10.04) K/mm3 RBC 5.38 H (3.98-5.22) M/mm3 Hgb 12.9 (11.2-15.7) gm/dl Hct 43.7 (34.1-44.9) % MCV 81.2 (79.4-94.8) fl MCH 24.0 L (25.6-32.2) pg MCHC 29.5 L (32.2-35.5) g/dl RDW Std Deviation 52.9 H (36.4-46.3) fL Plt Count 190 (182-369) K/mm3 MPV 10.1 (9.4-12.3) fl Neut % (Auto) 54.1 (34.0-71.1) % Lymph % (Auto) 36.5 (19.3-51.7) % [place] % (Auto) 8.2 (4.7-12.5) % Eos % (Auto) 0.8 (0.7-5.8) Baso % (Auto) 0.4 (0.1-1.2) % Neut # (Auto) 2.79 (1.56-6.13) K/mm3 Lymph # (Auto) 1.88 (1.18-3.74) K/mm3 [place] # (Auto) 0.42 H (0.24-0.36) K/mm3 Eos # (Auto) 0.04 (0.04-0.36) K/mm3 Baso # (Auto) 0.02 (0.01-0.08) K/mm3 Manual Slide Review Abnormal smear PT 25.5 H (9.7-12.0) SECONDS INR 2.42 Sodium 141 (136-145) mEq/L Potassium 3.8 (3.5-5.1) mEq/L Chloride 102 (98-107) mEq/L Carbon Dioxide 29 (21-32) mEq/L Anion Gap 13.8 (5-15) BUN 18 (7-18) mg/dL Creatinine 1.0 (0.55-1.02) mg/dL Est Cr Clr Drug Dosing 35.88 mL/min Estimated GFR (MDRD) 53 (>60) mL/min BUN/Creatinine Ratio 18.0 (14-18) Glucose 181 H (70-99) mg/dL POC Glucose (70-99) mg/dL Calcium 9.2 (8.5-10.1) mg/dL Magnesium 2.2 (1.8-2.4) mg/dL Total Bilirubin 1.1 H (0.2-1.0) mg/dL AST 13 L (15-37) U/L ALT 9 L (14-59) U/L Alkaline Phosphatase 119 H (46-116) U/L Total Protein 7.5 (6.4-8.2) g/dl Albumin 3.7 (3.4-5.0) g/dl Globulin 3.8 gm/dL Albumin/Globulin Ratio 1.0 (1-2) 08/31/20 08/31/20 Range/Units 06:25 10:58 WBC (3.98-10.04) K/mm3 RBC (3.98-5.22) M/mm3 Hgb (11.2-15.7) gm/dl Hct (34.1-44.9) % MCV (79.4-94.8) fl MCH (25.6-32.2) pg MCHC (32.2-35.5) g/dl RDW Std Deviation (36.4-46.3) fL Plt Count (182-369) K/mm3 MPV (9.4-12.3) fl Neut % (Auto) (34.0-71.1) % Lymph % (Auto) (19.3-51.7) % [place] % (Auto) (4.7-12.5) % Eos % (Auto) (0.7-5.8) Baso % (Auto) (0.1-1.2) % Neut # (Auto) (1.56-6.13) K/mm3 Lymph # (Auto) (1.18-3.74) K/mm3 [place] # (Auto) (0.24-0.36) K/mm3 Eos # (Auto) (0.04-0.36) K/mm3 Baso # (Auto) (0.01-0.08) K/mm3 Manual Slide Review PT (9.7-12.0) SECONDS INR Sodium (136-145) mEq/L Potassium (3.5-5.1) mEq/L Chloride (98-107) mEq/L Carbon Dioxide (21-32) mEq/L Anion Gap (5-15) BUN (7-18) mg/dL Creatinine (0.55-1.02) mg/dL Est Cr Clr Drug Dosing mL/min Estimated GFR (MDRD) (>60) mL/min BUN/Creatinine Ratio (14-18) Glucose (70-99) mg/dL POC Glucose 191 H 137 H (70-99) mg/dL Calcium (8.5-10.1) mg/dL Magnesium (1.8-2.4) mg/dL Total Bilirubin (0.2-1.0) mg/dL AST (15-37) U/L ALT (14-59) U/L Alkaline Phosphatase (46-116) U/L Total Protein (6.4-8.2) g/dl Albumin (3.4-5.0) g/dl Globulin gm/dL Albumin/Globulin Ratio (1-2) Med Orders - Current: Current Medications Acetaminophen (Acetaminophen 325 Mg Tab) 650 mg PO Q6H PRN PRN Reason: Pain (Mild 1-3)/fever Hydrocodone Bitart/Acetaminophen (Acetaminophen/Hydrocodone 325-5 Mg Tab) 1 tab PO Q6H PRN PRN Reason: Pain (moderate 4-6) Albuterol/Ipratropium (Albuterol/Ipratropium 3.0-0.5 Mg/3 Ml Neb Soln) 3 ml NEB Q4H PRN PRN Reason: Shortness Of Breath/wheezing Allopurinol (Allopurinol 300 Mg Tab) 150 mg PO DAILY [facility] Last Admin: 06/18/21 08:22 Dose: 150 mg Documented by: Atorvastatin Calcium (Atorvastatin 40 Mg Tab) 40 mg PO BEDTIME [facility] Last Admin: 08/30/20 20:52 Dose: 40 mg Documented by: Carvedilol (Carvedilol 12.5 Mg Tab) 25 mg PO BID [facility] Last Admin: 08/31/20 08:22 Dose: 25 mg Documented by: Diltiazem HCl (Diltiazem 180 Mg Cap.Cd) 180 mg PO BEDTIME [facility] Last Admin: 08/30/20 20:52 Dose: 180 mg Documented by: Furosemide (Furosemide 40 Mg/4 Ml Vial) 40 mg IVPUSH BIDDIURETIC [facility] Last Admin: 08/31/20 06:27 Dose: 40 mg Documented by: Glipizide (Glipizide 10 Mg Tab) 20 mg PO BIDAC [facility] Last Admin: 08/31/20 06:27 Dose: 20 mg Documented by: Hydralazine HCl (Hydralazine 20 Mg/Ml Sdv) 10 mg IVPUSH Q4H PRN PRN Reason: Hypertension Promethazine HCl 12.5 mg/ (Sodium Chloride) 50.5 mls @ 100 mls/hr IV Q6H PRN PRN Reason: Nausea/Vomiting Insulin Human Lispro (Insulin Lispro 100 Unit/Ml 10 Ml Vial) 0 unit SUBCUT QIDACANDBED [facility]; Protocol Last Admin: 08/31/20 11:13 Dose: Not Given Documented by: Levothyroxine Sodium (Levothyroxine 50 Mcg Tab) 50 mcg PO ACBREAKFAST [facility] Losartan Potassium (Losartan 50 Mg Tab) 50 mg PO DAILY [facility] Last Admin: 08/31/20 08:22 Dose: 50 mg Documented by: Pantoprazole Sodium (Pantoprazole 40 Mg Tab.Cr) 40 mg PO DAILY@0700 [facility] Sodium Chloride (Sodium Chloride 0.9% 10 Ml Syringe) 10 ml FLUSH ASDIRECTED PRN PRN Reason: Keep Vein Open Last Admin: 08/29/20 10:32 Dose: 10 ml Documented by: Tramadol HCl (Tramadol 50 Mg Tab) 50 mg PO Q6H PRN PRN Reason: back pain Warfarin Sodium (Pharmacy To Dose - Warfarin) 1 dose .XX ASDIRECTED PRN PRN Reason: RX TO DOSE WARFARIN Warfarin Sodium (Warfarin 2.5 Mg Tab) 2.5 mg PO QPM ANJELICA Stop: 08/31/20 18:01 Discontinued Medications Enoxaparin Sodium (Enoxaparin 40 Mg/0.4 Ml Syringe) 40 mg SUBCUT BEDTIME ANJELICA Furosemide (Furosemide 40 Mg/4 Ml Vial) 40 mg IVPUSH NOW ONE Stop: 08/29/20 10:34 Last Admin: 08/29/20 10:47 Dose: 40 mg Documented by: Glipizide (Glipizide 10 Mg Tab) 20 mg PO BID [facility] Magnesium Sulfate 4 gm/ Premix 50 mls @ 12.5 mls/hr IV ONETIME ONE Stop: 08/30/20 13:29 Last Admin: 08/30/20 09:30 Dose: 12.5 mls/hr Documented by: Magnesium Sulfate/Dextrose 1 (gm/ Premix) 100 mls @ 25 mls/hr IV ONETIME ONE Stop: 08/30/20 14:14 Last Admin: 08/30/20 11:01 Dose: 25 mls/hr Documented by: Potassium Chloride (Potassium Chloride 20 Meq Tab.Er) 20 meq PO TIDMEALS ANJELICA Stop: 08/31/20 07:01 Last Admin: 08/31/20 06:27 Dose: 20 meq Documented by: Warfarin Sodium (Warfarin 2.5 Mg Tab) 2.5 mg PO QPM ANJELICA Stop: 08/29/20 18:01 Last Admin: 08/29/20 17:15 Dose: 2.5 mg Documented by: Warfarin Sodium (Warfarin 2.5 Mg Tab) 2.5 mg PO QPM ANJELICA Stop: 08/30/20 18:01 Last Admin: 08/30/20 17:28 Dose: 2.5 mg Documented by: - Exam Physical Findings Comments:: General: Alert, Oriented, Cooperative HEENT: Conjunctiva Clear, EOMI, Pupils Equal, Pupils Reactive Neck: Supple, Trachea Midline, Full Range of Motion Lungs: Decreased Breath Sounds, Rhonchi (improved) Cardiovascular: Irregular Rhythm GI/Abdominal Exam: Normal Bowel Sounds, Soft, Non-Tender, No Distention, No Mass Extremities: Normal Inspection, Normal Range of Motion, Non-Tender, Pedal Edema (1-2+) (resolved) Skin: Warm, Dry, Intact Neurological: Strength Equal Bilateral, Normal Speech, Normal Tone, Sensation Intact Neuro Extensive - Mental Status: Alert, Oriented x3, Normal Mood/Affect Psychiatric: Normal Mood
[2020-08-31] MEDS ORDERED: Warfarin 2.5 MG Tab PO SCH (18:00)
[2020-09-01] MEDS ORDERED: Levothyroxine 50 MCG Tab PO SCH (06:00)
[2020-09-01] MEDS ORDERED: Pantoprazole 40 MG Tab.CR PO SCH (07:00)
== END 2020-08-31 12:51 | disposition home or self-care (01) | DRG 291 ==
LOC: JD.ED 10:05 → JD.MS 11:45
PROVIDERS: ADMIT Internal Medicine; ATTEND Internal Medicine
DX: I11.0 Hypertensive heart disease with heart failure (principal); I50.9 Heart failure, unspecified; J96.01 Acute respiratory failure with hypoxia; I48.20 Chronic atrial fibrillation, unspecified; I50.33 Acute on chronic diastolic (congestive) heart failure; I95.9 Hypotension, unspecified; I73.9 Peripheral vascular disease, unspecified; R94.31 Abnormal electrocardiogram [ECG] [EKG]; E11.9 Type 2 diabetes mellitus without complications; Z20.822 Contact with and (suspected) exposure to COVID-19; H54.7 Unspecified visual loss; E78.00 Pure hypercholesterolemia, unspecified; M19.90 Unspecified osteoarthritis, unspecified site; E03.9 Hypothyroidism, unspecified; E11.51 Type 2 diabetes mellitus with diabetic peripheral angiopathy without gangrene; E87.6 Hypokalemia; R79.1 Abnormal coagulation profile; E66.9 Obesity, unspecified; Z87.891 Personal history of nicotine dependence; Z98.41 Cataract extraction status, right eye; Z98.42 Cataract extraction status, left eye; Z88.2 Allergy status to sulfonamides; Z88.5 Allergy status to narcotic agent; Z88.8 Allergy status to other drugs, medicaments and biological substances; Z68.28 Body mass index [BMI] 28.0-28.9, adult; Z79.01 Long term (current) use of anticoagulants; Z79.84 Long term (current) use of oral hypoglycemic drugs; Z79.899 Other long term (current) drug therapy
CPT/HCPCS: 36415; 36600; 71045; 80053; 81001; 82803; 83735; 83880; 84484; 85025; 85379; 85610; 85730; 86140; 93005; 94762; 96374; 99285; J1940; U0002; 82947; 93010; 93306; 93970; 93970-26; 97161-GP; 97165-GO; 99223; 99233; 99239; A9270-GY; J1815-GY; J3475